=== PATIENT | male | born 1935 | race Caucasian/White ===

== ENCOUNTER → 2020-08-20 | Outpatient (CLI) | payer OTHER ==
[2020-08-20 15:09] LABS: MEAN CORP HGB 27.8 pg (26-34); RED CELL DISTRIBUTION WIDTH 14.9 % (11.5-14.5)
[2020-08-20 15:27] LABS: CALCIUM 8.5 mg/dL (8.4-10.5); CARBON DIOXIDE 28.3 mmol/L (20.0-32)
== END | disposition home or self-care (01) ==
LOC: NPLAB 11:52
PROVIDERS: ATTEND Internal Medicine
DX: Z11.59 Encounter for screening for other viral diseases (principal); I10 Essential (primary) hypertension; J01.90 Acute sinusitis, unspecified
CPT/HCPCS: 36415; 80053; 85027; 87804

== ENCOUNTER → 2022-03-10 | Outpatient (CLI) | payer MEDICARE, MEDICAID ==
[2022-03-10 17:17] LABS: BILIRUBIN,URINE 2+ (NEGATIVE)
== END | disposition home or self-care (01) ==
LOC: NPLAB 16:59
PROVIDERS: ATTEND Internal Medicine
DX: R82.90 Unspecified abnormal findings in urine (principal)
CPT/HCPCS: 81001; 87086

== ENCOUNTER → 2022-05-27 | Outpatient (CLI) | payer MEDICARE, MEDICAID ==
[2022-05-27 14:21] LABS: BASOPHIL % 0.3 % (0.0-0.2); EOSINOPHIL % 0.1 % (0.0-5.0); LYMPHOCYTES # 1.03 10^3/uL1 (1.0-4.8); LYMPHOCYTES % 9.9 % (24.0-44.0); MEAN CORP HGB 28.6 pg (26-34); MONOCYTES % 9.2 % (5.0-12.0); NEUTROPHIL # 8.4 10^3/uL (1.8-7.7); NEUTROPHILS % 80.2 % (41.0-85.0); PLATELET COUNT 183 10^3/uL (150-400); RED CELL DISTRIBUTION WIDTH 14.9 % (11.5-14.5)
[2022-05-27 14:30] LABS: CARBON DIOXIDE 26.1 mmol/L (20.0-32)
== END | disposition home or self-care (01) ==
LOC: NPLAB 12:09
PROVIDERS: ATTEND Internal Medicine
DX: I50.32 Chronic diastolic (congestive) heart failure (principal); N39.0 Urinary tract infection, site not specified; D64.9 Anemia, unspecified; D50.9 Iron deficiency anemia, unspecified
CPT/HCPCS: 80053; 85025